=== PATIENT | female | born 1955 | race Two or more races ===

== ENCOUNTER → 2021-06-10 | Outpatient (CLI) | payer MEDICARE, OTHER ==
--- NOTE | 2021-06-10 16:18 | RAD ---
Bone densitometry 06/10/2021 2:48 PM Indication: Reason: OSTEOPORSSIS / Spl. Instructions: / History: Comparison Study: Bone density October 13, 2011. Discussion: Bone Densitometry was performed with dual photon absorption of the lumbar spine and lef t forearm. Lumbar Spine: Bone average density is 0.877g/cm2 for L1-L4. T-Score is 6 2.5. Left radius: Bone average density is 0.444g/cm2. T-Score is -3.8. IMPRESSION: Osteoporosis. Fracture risk is high. Bone mineral density appears to have significantly d ecreased in the interim since comparison exam Note: Definitions established by the [employer] Organization: Normal: T-score is -1.0 or above. Osteopenia: T-score is between -1.0 and -2.5. Osteoporosis: T-score is -2.5 or below. Electronically signed by: Lyle Ramirez MD (06/10/2021 4:16 PM) [id number]
== END ==
LOC: DXRAD 14:11
PROVIDERS: ATTEND Advanced Practice Midwife
DX: M81.0 Age-related osteoporosis without current pathological fracture (principal)
CPT/HCPCS: 77080